=== PATIENT | male | born 1930 | race African-American/Black ===

== ENCOUNTER 2019-06-28 14:31 | Observation (INO) | payer OTHER ==
--- NOTE | 2019-06-28 15:48 | PDOC ---
History of Present Illness - General Chief Complaint: Injury Stated Complaint: FALL Time Seen by Provider: 06/28/19 15:06 History Source: Patient, Family Exam Limitations: Dementia - History of Present Illness Initial Comments: 06/30/19 18:06 HPI: 88M PMH vascular dementia, prior CVA (lacunar), and TIA BIBEMS from [address] [place] [address] after fall with head strike. Unwitnessed, found on bedroom floor w/ left ear laceration/bleeding and c/o head pain. Patient is poor/unreliable historian. Denies changes in vision/hearing, numbness/tingling/weakness, chest pain, sob, n /v/abdpain, dysuria. Not on AC per [facility] charts and family. Past History - Past Medical History Allergies/Adverse Reactions: Allergies Allergy/AdvReac Type Severity Reaction Status Date / Time No Known Allergies Allergy Verified 06/28/19 15:36 Home Medications: Ambulatory Orders Acetaminophen 650 mg PO DAILY 06/28/19 Aspirin [Aspirin EC] 81 mg PO DAILY 06/28/19 Atorvastatin Ca [Lipitor] 10 mg PO HS 06/28/19 Docusate Sodium 100 mg PO BID 06/28/19 Folic Acid 1 mg PO DAILY 06/28/19 Lisinopril 10 mg PO DAILY 06/28/19 Paliperidone [Paliperidone ER] 1.5 mg PO HS 06/28/19 COPD: No Dementia: Yes HTN: Yes Hypercholesterolemia: Yes - Psycho Social/Smoking Cessation Hx Smoking History: Smoker current status UNK Have you smoked in the past 12 months: No Information on smoking cessation initiated: No Hx Alcohol Use: No Drug/Substance Use Hx: No Review of Systems - Review of Systems Comments:: 06/30/19 18:07 ROS: ROS of limited utility 2/2 dementia, poor/unreliable historian. CONSTITUTIONAL: Denies F / C HEENT: Endorses head strike, head pain, left pinna laceration. Denies changes in vision / hearing. RESP: Denies SOB CARD: Denies chest pain GI: Denies N / V / D, abdominal pain, inability to tolerate PO : Family endorses that pt has increased urinary frequency in past couple weeks. Denies dysuria NEURO: +fall. Denies numbness, tingling, weakness *Physical Exam - Vital Signs Last Vital Signs Temp Pulse Resp BP Pulse Ox 97.9 F 66 20 130/71 100 06/28/19 14:43 06/28/19 14:43 06/28/19 14:43 06/28/19 14:43 06/28/19 14:43 - Physical Exam Comments: 06/30/19 18:07 PE: GEN: NAD, comfortable. Awake, alert, oriented to person and . confused to place and year. HEENT: No obvious deformities or hematomas of the skull. There is a laceration of the left ear pinna w/ slow oozing and mostly dried blood. No webster sign or raccoon eyes. CN II-XII grossly intact, EOMI, PERRLA. No facial asymmetry. Normal voice. There is mild TTP of C6 midline. CV: S1/S2, RRR, no m/r/g LUNG: CTAB, no wheezes, crackles, rales, rhonchi. GI: +mild TTP of the suprapubic region. soft, ndnt, +BS, no guarding, no rebound. No masses. EXTREMITIES: No LE edema. No obvious deformities of all extremities. SKIN: warm, dry, normal turgor PSYCH: pleasant, cooperative, slightly tangential responses on exam BACK: No step offs or midline tenderness. NEURO: age appropriate strength of UE and LE b/l. sensation grossly intact and equal throughout. Able to stand steady but complains of dizziness after. ED Treatment Course - LABORATORY CBC & Chemistry Diagram: 06/30/19 06:00 06/30/19 06:00 Medical Decision Making - Medical Decision Making 06/28/19 15:53 MDM: 88M B[place]EMS [place] s/p unwitnessed fall w/ + head strike and unknown LOC status. left pinna laceration. Work up for syncope - ACS, arrhythmia, dehydration, electrolyte abnormalities, infection - CBC, CMP, Coag, Cardiac - UA/UC - CT HEAD&NECK - CXR - EKG - Fluids (not on lasix, no hx CHF) - telemetry 06/28/19 17:01 EKG 07.02.19 16:41:17 HR 62 PA 184 QRS 82 QTc 438 Normal axis NSR CXR IMPRESSION: No acute chest pathology. If symptoms persist, further imaging may be of help 06/28/19 17:12 labs reviewed trop neg WBC 12 Elevated BUN/Cr 29.2/1.4 06/28/19 17:47 CT HEAD IMPRESSION: No CT evidence of acute intracranial pathology. Small chronic right cerebellar infarcts. Moderate periventricular and subcortical chronic microvascular ischemic changes. CT C-SPINE IMPRESSION: No fracture is identified. Patient and family updated on results Admit to OBS-TELE 06/28/19 18:14 Endorsed to hospitalist team OBS-TELE // Discharge - Discharge Information Problems reviewed: Yes Clinical Impression/Diagnosis: Syncope Qualifiers: Syncope type: unspecified Qualified Code(s): R55 - Syncope and collapse Fall Qualifiers: Encounter type: initial encounter Qualified Code(s): W19.XXXA - Unspecified fall, initial encounter Condition: Stable - Admission Yes - Follow up/Referral - Patient Discharge Instructions - Post Discharge Activity
[2019-06-28] MEDS ORDERED: DIPHTH,PERTUSS(ACELL),TET 0.5 ML DISP.SYRIN IM ONE ×2 (16:24→19:08)
[2019-06-28] MEDS ORDERED: SODIUM CHLORIDE 0.9% 500 ML INFUS.BAG IV ONE (16:26)
[2019-06-28 16:27] LABS: BASO % 0.9 % (0-2.0); EOS % 2.3 % (0-4.5); HEMATOCRIT 34.3 % (35.4-49); HEMOGLOBIN 11.2 GM/dL (11.7-16.9); LYMPH % 19.1 % (8-40); MCH 32.5 pg (25.7-33.7); MCHC 32.6 g/dl (32.0-35.9); MEAN CELL VOLUME 99.8 fl (80-96); MEAN PLT VOLUME 7.2 fl (7.5-11.1); MONO % 12.5 % (3.8-10.2); NEUT % 65.2 % (42.8-82.8); PLATELET COUNT 303 K/MM3 (134-434); RBC 3.44 M/mm3 (4.00-5.60); RDW 13.2 % (11.9-15.9); WHITE BLOOD COUNT 12.1 K/mm3 (4.0-10.0)
[2019-06-28 16:58] LABS: ALBUMIN 3.2 g/dl (3.4-5.0); BILIRUBIN,TOTAL 0.3 mg/dL (0.2-1); BLOOD UREA NITROGEN 29.2 mg/dL (7-18); CALCIUM 8.9 mg/dL (8.5-10.1); CREATININE 1.4 mg/dL (0.55-1.3); POTASSIUM 4.9 mmol/L (3.5-5.1); TOT PROT 7.2 g/dl (6.4-8.2)
[2019-06-28 17:02] LABS: INR 1.25 (0.83-1.09); PROTHROMBIN TIME (PATIENT) 14.8 SEC (9.7-13.0)
--- NOTE | 2019-06-28 17:02 | PDOC ---
Documentation entered by Anthony Zavala SCRIBE, acting as scribe for Augie Curry MD. Augie Curry MD: This documentation has been prepared by the Sally ruano Xhesika, SCRIBE, under my direction and personally reviewed by me in its entirety. I confirm that the documentation accurately reflects all work, treatment, procedures, and medical decision making performed by me. Attending Attestation - Resident Resident Name: NemesioKane - ED Attending Attestation I have performed the following: I have examined & evaluated the patient, The case was reviewed & discussed with the resident, I agree w/resident's findings & plan, Exceptions are as noted - HPI HPI: 06/28/19 16:23 The patient is a 88 year old male with a PMH of HTN, vascular dementia, prior CVA (lacunar), and TIA who presents to the ED [facility]IBEMS [facility] s/p fall. Pt does not remember the events, however, daughter at bedside providing history. As per daughter she recieved a call that the patient fell and hit his L ear. Daughter does not know if fall was witnessed/unwitnessed. Daughter denies any LOC. Pt does not recall his last tetanus shot. Pt denies any pain currently. Allergies:, NKDA Social Hx: Denies current smoking, drinking, or other substance usage. - Physicial Exam PE: 06/28/19 16:23 Vitals: Triage Vital signs reviewed General Appearance: no acute distress, well nourished well developed, Head: Atraumatic, normocephalic Ears: + L outer ear laceration. TM's normal bilaterally; Chest Wall: Nontender Cardiac: Regular rate and rhythm, no murmurs, no rubs, no gallops, Lungs: Clear to auscultation bilateral, good air movement bilaterally, Abdomen: Soft, nondistended, normal bowel sounds, nontender to palpation Extremities: Full range of motion to all extremities, no cyanosis, clubbing, or edema Skin: Warm and dry, no rashes or lesions, no petechiae Neuro: AOX3; Cranial Nerves 2-12 grossly c intact, Strength intact to all extremities, Sensation intact to all extremities Psych: normal mood, normal affect - Medical Decision Making 06/28/19 17:01 88 years old with past medical history of hypertension vascular dementia CVA TIA brought in by EMS for unwitnessed fall and possible syncopal event Patient does not remember events secondary to dementia and previous strokes Patient at risk for cardiogenic etiology of syncope arrhythmia valvular disease that warrants further testing or observation will observe for further management. Heart Score/ECG Review - ECG Impressions Comment:: 06/28/19 17:00 EKG performed at 1641 demonstrates normal sinus rhythm no ST elevations or T wave inversions Interpreted by me.
[2019-06-28 20:16] LABS: EPI CELLS 0.2 /HPF (0-5/HPF); HYALINE CASTS 9 /lpf (0-8); URINE APPEARANCE CLOUDY; URINE BACTERIA 4513.7 /hpf (NEGATIVE); URINE BILIRUBIN NEGATIVE (NEGATIVE); URINE COLOR YELLOW; URINE GLUCOSE (UA) NEGATIVE (NEGATIVE); URINE KETONE NEGATIVE (NEGATIVE); URINE LEUK ESTERASE 2+ (NEGATIVE); URINE NITRITE NEGATIVE (NEGATIVE); URINE PROTEIN TRACE (NEGATIVE); URINE RBC 2 /hpf (0-4); URINE WBC 90 /hpf (0-5)
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
[2019-06-28] MEDS ORDERED: ACETAMINOPHEN 325 MG TABLET (FP) PO PRN (21:02)
[2019-06-28] MEDS: DOCUSATE SODIUM 100 MG CAPSULE (FP) PO SCH (21:54)
[2019-06-28] MEDS: ATORVASTATIN CA 10 MG TABLET (FP) PO SCH (21:54)
[2019-06-28] MEDS: BACITRACIN/POLYMYXIN B SULFATE 15 GM TUBE TP SCH (23:46)
[2019-06-29] MEDS ORDERED: CEFTRIAXONE 1 GM in DEXTROSE 5%-WATER - 50 ML IVPB ONE (06:11)
[2019-06-29 06:40] LABS: BASO % 1.1 % (0-2.0); EOS % 2.2 % (0-4.5); HEMATOCRIT 32.5 % (35.4-49); HEMOGLOBIN 10.9 GM/dL (11.7-16.9); LYMPH % 25.7 % (8-40); MCH 33.4 pg (25.7-33.7); MCHC 33.6 g/dl (32.0-35.9); MEAN CELL VOLUME 99.4 fl (80-96); MEAN PLT VOLUME 7.8 fl (7.5-11.1); MONO % 10.1 % (3.8-10.2); NEUT % 60.9 % (42.8-82.8); PLATELET COUNT 304 K/MM3 (134-434); RBC 3.27 M/mm3 (4.00-5.60); RDW 13.3 % (11.9-15.9); WHITE BLOOD COUNT 10.2 K/mm3 (4.0-10.0)
[2019-06-29] MEDS: LISINOPRIL 10 MG TABLET (FP) PO SCH (06:47)
[2019-06-29] MEDS ORDERED: cefTRIAXone SODIUM 1 GM VIAL ONE (07:01)
[2019-06-29] MEDS ORDERED: DEXTROSE 5%-WATER - 50 ML IVPB ONE (07:02)
[2019-06-29 07:11] LABS: ANION GAP 7 MMOL/L (8-16); BLOOD UREA NITROGEN 23.8 mg/dL (7-18); CALCIUM 8.7 mg/dL (8.5-10.1); CHLORIDE 111 mmol/L (98-107); CO2 22 mmol/L (21-32); CREATININE 1.2 mg/dL (0.55-1.3); GLUCOSE,RANDOM 108 mg/dL (74-106); MAGNESIUM 1.9 mg/dL (1.8-2.4); PHOSPHOROUS 3.4 mg/dL (2.5-4.9); POTASSIUM 4.8 mmol/L (3.5-5.1); SODIUM 140 mmol/L (136-145)
--- NOTE | 2019-06-29 07:37 | PN ---
Progress Note, Physician Chief Complaint: No complaints offered, resting comfortably in bed History of Present Illness: This is a 88 y/o man from [facility] with a PMHx of Vascular Dementia, TIA, CVA, HTN, HLD. Who presents to the ED for evaluation after being found on the floor. Patient has Dementia and is unable to provide HPI. The patient's daughter was at bedside, and reports that she received a call that her dad was found on the floor and had cut his ear. The patient denies headache , dizziness, SOB, CP, palpitations, AP, N/V/D - Current Medication List Current Medications: Active Medications Acetaminophen (Tylenol -) 650 mg PO Q6H PRN PRN Reason: PAIN LEVEL 6-10 Aspirin (Ecotrin -) 81 mg PO DAILY [facility] Atorvastatin Calcium (Lipitor -) 10 mg PO HS [facility] Last Admin: 06/28/19 21:54 Dose: 10 mg Bacitracin/Polymyxin B Sulfate (Polysporin Ointment -) 1 applic TP DAILY [facility] Last Admin: 06/28/19 23:46 Dose: Not Given Docusate Sodium (Colace -) 100 mg PO BID [facility] Last Admin: 06/28/19 21:54 Dose: 100 mg Folic Acid (Folic Acid -) 1 mg PO DAILY [facility] Ceftriaxone Sodium 1 gm/ (Dextrose) 50 mls @ 100 mls/hr IVPB DAILY [facility]; Protocol Lisinopril (Prinivil) 10 mg PO DAILY [facility] Last Admin: 06/29/19 06:47 Dose: 10 mg - Objective Vital Signs: Vital Signs Temperature 98.0 F 06/29/19 06:00 Pulse Rate 74 06/29/19 06:00 Respiratory Rate 20 06/29/19 06:00 Blood Pressure 174/94 H 06/29/19 06:00 O2 Sat by Pulse Oximetry (%) 100 06/29/19 04:54 Constitutional: Yes: Well Nourished, No Distress, Calm Eyes: Yes: WNL, Conjunctiva Clear HENT: Yes: WNL, Atraumatic, Normocephalic Neck: Yes: WNL, Supple, Trachea Midline Cardiovascular: Yes: WNL, Regular Rate and Rhythm Respiratory: Yes: WNL, Regular, CTA Bilaterally Gastrointestinal: Yes: WNL, Normal Bowel Sounds ...Rectal Exam: Yes: Deferred Genitourinary: Yes: Incontinence Breast(s): Yes: WNL Musculoskeletal: Yes: WNL Edema: No Peripheral Pulses WNL: Yes Peripheral Pulses: Left Radial: 2+, Right Radial: 2+, Left Doralis Pedis: 2+, Right Dorsalis Pedis: 2+, Left Femoral: 2+, Right Femoral: 2+ Integumentary: Yes: Skin Tear (left ear) Neurological: Yes: Confusion ...Motor Strength: WNL Psychiatric: Yes: WNL Labs: CBC, BMP 06/29/19 05:28 06/29/19 05:28 INR, PTT INR 1.25 (0.83-1.09) H 06/28/19 16:08 - ....Imaging Cat Scan: Report Reviewed (HCT:no ICH, acute pathology Cervical: no fx) Problem List - Problems (1) Vascular dementia Assessment/Plan: c/w asa, statin supportive care fall precautions bed alarm Code(s): F01.50 - VASCULAR DEMENTIA WITHOUT BEHAVIORAL DISTURBANCE (2) TIA (transient ischemic attack) Assessment/Plan: history of Code(s): G45.9 - TRANSIENT CEREBRAL ISCHEMIC ATTACK, UNSPECIFIED (3) CVA (cerebral vascular accident) Assessment/Plan: history of Code(s): I63.9 - CEREBRAL INFARCTION, UNSPECIFIED (4) Prophylactic measure Assessment/Plan: FEN Fluids: adequate PO intake Electrolytes: replete as indicated Nutrition: low sodium diet DVT prophylaxis: SCDs, oob, ambulation Dispo: continues to require inpatient care. Full code discharge planning Code(s): Z29.9 - ENCOUNTER FOR PROPHYLACTIC MEASURES, UNSPECIFIED (5) HLD (hyperlipidemia) Assessment/Plan: c/w atrorvastatin Code(s): E78.5 - HYPERLIPIDEMIA, UNSPECIFIED (6) HTN (hypertension) Assessment/Plan: c/w lisinipril with hold parameters Code(s): I10 - ESSENTIAL (PRIMARY) HYPERTENSION (7) Syncope and collapse Assessment/Plan: unwittnessed fall mainatin on telelmtry cardiac /u in progress Troponins negative EKG without ischemic changes TTE pending appreciate cardiology consultation Code(s): R55 - SYNCOPE AND COLLAPSE Visit type - Emergency Visit Emergency Visit: Yes ED Registration Date: 06/28/19 Care time: The patient presented to the Emergency Department on the above date and was hospitalized for further evaluation of their emergent condition. - New Patient This patient is new to me today: Yes Date on this admission: 06/29/19 - Critical Care Critical Care patient: No - Discharge Referral Referred to [facility] No
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
[2019-06-29] MEDS: ASPIRIN COATED 81 MG TABLET.EC PO SCH (09:29)
[2019-06-29] MEDS: DOCUSATE SODIUM 100 MG CAPSULE (FP) PO SCH ×2 (09:29→22:41)
[2019-06-29] MEDS: FOLIC ACID 1 MG TABLET (FP) PO SCH (09:29)
[2019-06-29] MEDS: BACITRACIN/POLYMYXIN B SULFATE 15 GM TUBE TP SCH (12:59)
--- NOTE | 2019-06-29 14:55 | EKG ---
Test Reason : Blood Pressure : / mmHG Vent. Rate : 062 BPM Atrial Rate : 062 BPM P-R Int : 184 ms QRS Dur : 082 ms QT Int : 432 ms P-R-T Axes : 062 020 052 degrees QTc Int : 438 ms POOR DATA QUALITY, INTERPRETATION MAY BE ADVERSELY AFFECTED NORMAL SINUS RHYTHM NORMAL ECG NO PREVIOUS ECGS AVAILABLE Confirmed by LUIS ARMANDO BRIONES MD ([id number]) on 06/29/2019 2:55:33 PM Referred By: Confirmed By:LUIS ARMANDO BRIONES MD
[2019-06-29 15:17] VITALS: BMI 26.4
[2019-06-29] MEDS: ATORVASTATIN CA 10 MG TABLET (FP) PO SCH (22:41)
[2019-06-30 06:33] LABS: EOS % 3.1 % (0-4.5); HEMATOCRIT 33.8 % (35.4-49); HEMOGLOBIN 11.4 GM/dL (11.7-16.9); LYMPH % 25.9 % (8-40); MCH 33.5 pg (25.7-33.7); MCHC 33.7 g/dl (32.0-35.9); MEAN CELL VOLUME 99.2 fl (80-96); MEAN PLT VOLUME 7.4 fl (7.5-11.1); MONO % 11.2 % (3.8-10.2); NEUT % 58.8 % (42.8-82.8); PLATELET COUNT 274 K/MM3 (134-434); WHITE BLOOD COUNT 9.5 K/mm3 (4.0-10.0)
[2019-06-30 07:06] LABS: BILIRUBIN,TOTAL 0.3 mg/dL (0.2-1); BLOOD UREA NITROGEN 22.7 mg/dL (7-18); CALCIUM 8.8 mg/dL (8.5-10.1); CREATININE 1.2 mg/dL (0.55-1.3); POTASSIUM 4.6 mmol/L (3.5-5.1)
[2019-06-30] MEDS: LISINOPRIL 10 MG TABLET (FP) PO SCH ×2 (07:34→10:03)
--- NOTE | 2019-06-30 08:05 | PN ---
Progress Note, Physician Chief Complaint: No complaints offered, resting comfortably in bed. awaiting daughter to visit History of Present Illness: This is a 88 y/o man from [facility] with a PMHx of Vascular Dementia, TIA, CVA, HTN, HLD. Who presents to the ED for evaluation after being found on the floor. Patient has Dementia and is unable to provide HPI. The patient's daughter was at bedside, and reports that she received a call that her dad was found on the floor and had cut his ear. The patient denies headache , dizziness, SOB, CP, palpitations, AP, N/V/D - Current Medication List Current Medications: Active Medications Acetaminophen (Tylenol -) 650 mg PO Q6H PRN PRN Reason: PAIN LEVEL 6-10 Aspirin (Ecotrin -) 81 mg PO DAILY [facility] Last Admin: 06/29/19 09:29 Dose: 81 mg Atorvastatin Calcium (Lipitor -) 10 mg PO HS [facility] Last Admin: 06/29/19 22:41 Dose: 10 mg Bacitracin/Polymyxin B Sulfate (Polysporin Ointment -) 1 applic TP DAILY [facility] Last Admin: 06/29/19 12:59 Dose: Not Given Docusate Sodium (Colace -) 100 mg PO BID [facility] Last Admin: 06/29/19 22:41 Dose: 100 mg Folic Acid (Folic Acid -) 1 mg PO DAILY [facility] Last Admin: 06/29/19 09:29 Dose: 1 mg Ceftriaxone Sodium 1 gm/ (Dextrose) 50 mls @ 100 mls/hr IVPB DAILY [facility]; Protocol Lisinopril (Prinivil) 10 mg PO DAILY [facility] Last Admin: 06/30/19 07:34 Dose: 10 mg - Objective Vital Signs: Vital Signs Temperature 97.6 F 06/30/19 06:00 Pulse Rate 68 06/30/19 06:00 Respiratory Rate 18 06/30/19 06:00 Blood Pressure 178/87 H 06/30/19 06:00 O2 Sat by Pulse Oximetry (%) 99 06/30/19 04:00 Additional Findings/Remarks: Constitutional: Yes: Well Nourished, No Distress, Calm Eyes: Yes: WNL, Conjunctiva Clear HENT: Yes: WNL, Atraumatic, Normocephalic Neck: Yes: WNL, Supple, Trachea Midline Cardiovascular: Yes: WNL, Regular Rate and Rhythm Respiratory: Yes: WNL, Regular, CTA Bilaterally Gastrointestinal: Yes: WNL, Normal Bowel Sounds ...Rectal Exam: Yes: Deferred Genitourinary: Yes: Incontinence Breast(s): Yes: WNL Musculoskeletal: Yes: WNL Edema: No Peripheral Pulses WNL: Yes Peripheral Pulses: Left Radial: 2+, Right Radial: 2+, Left Doralis Pedis: 2+, Right Dorsalis Pedis: 2+, Left Femoral: 2+, Right Femoral: 2+ Integumentary: Yes: Skin Tear (left ear) Neurological: Yes: Confusion ...Motor Strength: WNL Psychiatric: Yes: WNL Labs: CBC, BMP 06/30/19 06:00 06/30/19 06:00 INR, PTT INR 1.25 (0.83-1.09) H 06/28/19 16:08 Problem List - Problems (1) Vascular dementia Assessment/Plan: c/w asa, statin supportive care fall precautions bed alarm Code(s): F01.50 - VASCULAR DEMENTIA WITHOUT BEHAVIORAL DISTURBANCE (2) TIA (transient ischemic attack) Assessment/Plan: history in the past HCT without acute pathology Code(s): G45.9 - TRANSIENT CEREBRAL ISCHEMIC ATTACK, UNSPECIFIED (3) CVA (cerebral vascular accident) Assessment/Plan: history in the past HCT without acute pathology Code(s): I63.9 - CEREBRAL INFARCTION, UNSPECIFIED (4) Prophylactic measure Assessment/Plan: FEN Fluids: adequate PO intake Electrolytes: replete as indicated Nutrition: low sodium diet DVT prophylaxis: SCDs, oob, ambulation Dispo: continues to require inpatient care. Full code discharge planning Code(s): Z29.9 - ENCOUNTER FOR PROPHYLACTIC MEASURES, UNSPECIFIED (5) HLD (hyperlipidemia) Assessment/Plan: c/w atrorvastatin Code(s): E78.5 - HYPERLIPIDEMIA, UNSPECIFIED (6) HTN (hypertension) Assessment/Plan: c/w lisinipril with hold parameters Code(s): I10 - ESSENTIAL (PRIMARY) HYPERTENSION (7) Syncope and collapse Assessment/Plan: unwittnessed fall maintain on telemetry cardiac w/u in progress Troponins negative EKG without ischemic changes TTE pending appreciate cardiology consultation Code(s): R55 - SYNCOPE AND COLLAPSE (8) UTI (urinary tract infection) Assessment/Plan: UA- +2 Leukocytes, 90 WBCs, + Bacteria, asymptomatic Urine Culture with LFNB c/w Ceftriaxone, follow sensitivities Code(s): N39.0 - URINARY TRACT INFECTION, SITE NOT SPECIFIED (9) KB (acute kidney injury) Assessment/Plan: Cr 1.4 on admission now 1.2 avoid nephroloxic agents continue to monitor Code(s): N17.9 - ACUTE KIDNEY FAILURE, UNSPECIFIED Visit type - Emergency Visit Emergency Visit: Yes ED Registration Date: 06/28/19 Care time: The patient presented to the Emergency Department on the above date and was hospitalized for further evaluation of their emergent condition. - New Patient This patient is new to me today: No - Critical Care Critical Care patient: No - Discharge Referral Referred to [facility] No
[2019-06-30] MEDS ORDERED: DEXTROSE 5%-WATER - 50 ML IVPB ONE (09:06)
[2019-06-30] MEDS ORDERED: cefTRIAXone SODIUM 1 GM VIAL ONE (09:06)
[2019-06-30] MEDS: DOCUSATE SODIUM 100 MG CAPSULE (FP) PO SCH ×2 (09:33→22:35)
[2019-06-30] MEDS: FOLIC ACID 1 MG TABLET (FP) PO SCH (09:33)
[2019-06-30] MEDS: CEFTRIAXONE 1 GM in DEXTROSE 5%-WATER - 50 ML IVPB SCH (09:33)
[2019-06-30] MEDS: BACITRACIN/POLYMYXIN B SULFATE 15 GM TUBE TP SCH (09:34)
[2019-06-30] MEDS: ASPIRIN COATED 81 MG TABLET.EC PO SCH (09:37)
--- NOTE | 2019-06-30 11:24 | PN ---
Progress Note, Physician History of Present Illness: This is a 88 y/o man from [facility] with a PMHx of Vascular Dementia, TIA, CVA, HTN, HLD. Who presents to the ED for evaluation after being found on the floor. Patient has Dementia and is unable to provide HPI. The patient's daughter was at bedside, and reports that she received a call that her dad was found on the floor and had cut his ear. The patient denies headache , dizziness, SOB, CP, palpitations, AP, N/V/D. - Current Medication List Current Medications: Active Medications Acetaminophen (Tylenol -) 650 mg PO Q6H PRN PRN Reason: PAIN LEVEL 6-10 Aspirin (Ecotrin -) 81 mg PO DAILY [facility] Last Admin: 06/30/19 09:37 Dose: 81 mg Atorvastatin Calcium (Lipitor -) 10 mg PO HS [facility] Last Admin: 06/29/19 22:41 Dose: 10 mg Bacitracin/Polymyxin B Sulfate (Polysporin Ointment -) 1 applic TP DAILY [facility] Last Admin: 06/30/19 09:34 Dose: 1 applic Docusate Sodium (Colace -) 100 mg PO BID [facility] Last Admin: 06/30/19 09:33 Dose: 100 mg Folic Acid (Folic Acid -) 1 mg PO DAILY [facility] Last Admin: 06/30/19 09:33 Dose: 1 mg Ceftriaxone Sodium 1 gm/ (Dextrose) 50 mls @ 100 mls/hr IVPB DAILY [facility]; Protocol Last Admin: 06/30/19 09:33 Dose: 100 mls/hr Lisinopril (Prinivil) 10 mg PO DAILY [facility] Last Admin: 06/30/19 10:03 Dose: Not Given - Objective Vital Signs: Vital Signs Temperature 97.6 F 06/30/19 08:50 Pulse Rate 68 06/30/19 09:31 Respiratory Rate 18 06/30/19 09:31 Blood Pressure 123/57 L 06/30/19 09:31 O2 Sat by Pulse Oximetry (%) 99 06/30/19 04:00 Eyes: Yes: WNL, Conjunctiva Clear, EOM Intact HENT: Yes: WNL, Atraumatic, Normocephalic Neck: Yes: WNL, Supple, Trachea Midline Cardiovascular: Yes: WNL, Regular Rate and Rhythm Respiratory: Yes: WNL, Regular, CTA Bilaterally Gastrointestinal: Yes: WNL, Normal Bowel Sounds Genitourinary: Yes: WNL Musculoskeletal: Yes: WNL Extremities: Yes: WNL Edema: No Integumentary: Yes: WNL Neurological: Yes: WNL, Alert, Oriented ...Motor Strength: WNL Psychiatric: Yes: WNL Labs: CBC, BMP 06/30/19 06:00 06/30/19 06:00 INR, PTT INR 1.25 (0.83-1.09) H 06/28/19 16:08 Problem List - Problems (1) Abrasion Code(s): T14.8XXA - OTHER INJURY OF UNSPECIFIED BODY REGION, INITIAL ENCOUNTER (2) CVA (cerebral vascular accident) Code(s): I63.9 - CEREBRAL INFARCTION, UNSPECIFIED (3) Dementia Code(s): F03.90 - UNSPECIFIED DEMENTIA WITHOUT BEHAVIORAL DISTURBANCE (4) Fall Code(s): W19.XXXA - UNSPECIFIED FALL, INITIAL ENCOUNTER Qualifiers: Encounter type: initial encounter Qualified Code(s): W19.XXXA - Unspecified fall, initial encounter (5) HLD (hyperlipidemia) Code(s): E78.5 - HYPERLIPIDEMIA, UNSPECIFIED (6) HTN (hypertension) Code(s): I10 - ESSENTIAL (PRIMARY) HYPERTENSION (7) Prophylactic measure Code(s): Z29.9 - ENCOUNTER FOR PROPHYLACTIC MEASURES, UNSPECIFIED (8) Syncope Code(s): R55 - SYNCOPE AND COLLAPSE Qualifiers: Syncope type: unspecified Qualified Code(s): R55 - Syncope and collapse (9) TIA (transient ischemic attack) Code(s): G45.9 - TRANSIENT CEREBRAL ISCHEMIC ATTACK, UNSPECIFIED (10) UTI (urinary tract infection) Code(s): N39.0 - URINARY TRACT INFECTION, SITE NOT SPECIFIED (11) Vascular dementia Code(s): F01.50 - VASCULAR DEMENTIA WITHOUT BEHAVIORAL DISTURBANCE Assessment/Plan Vascular Dementia, TIA, CVA, HTN, HLD. Who presents to the ED for evaluation after being found on the floor r/o mi neg Plan telemetry echo cont medical rx will f/u Coverage for dr. Haro
[2019-06-30] MEDS: ATORVASTATIN CA 10 MG TABLET (FP) PO SCH (22:35)
[2019-07-01 06:59] LABS: BASO % 0.9 % (0-2.0); EOS % 3.8 % (0-4.5); HEMATOCRIT 32.7 % (35.4-49); HEMOGLOBIN 10.9 GM/dL (11.7-16.9); MCH 33.2 pg (25.7-33.7); MCHC 33.5 g/dl (32.0-35.9); MEAN CELL VOLUME 99.2 fl (80-96); MEAN PLT VOLUME 8.1 fl (7.5-11.1); MONO % 12.1 % (3.8-10.2); NEUT % 59.2 % (42.8-82.8); PLATELET COUNT 261 K/MM3 (134-434); RDW 13.2 % (11.9-15.9); WHITE BLOOD COUNT 10.7 K/mm3 (4.0-10.0)
--- NOTE | 2019-07-01 07:29 | PN ---
Progress Note, Physician History of Present Illness: This is a 88 y/o man from [facility] with a PMHx of Vascular Dementia, TIA, CVA, HTN, HLD. Who presents to the ED for evaluation after being found on the floor. Patient has Dementia and is unable to provide HPI. The patient's daughter was at bedside, and reports that she received a call that her dad was found on the floor and had cut his ear. The patient denies headache , dizziness, SOB, CP, palpitations, AP, N/V/D - Current Medication List Current Medications: Active Medications Acetaminophen (Tylenol -) 650 mg PO Q6H PRN PRN Reason: PAIN LEVEL 6-10 Aspirin (Ecotrin -) 81 mg PO DAILY [facility] Last Admin: 06/30/19 09:37 Dose: 81 mg Atorvastatin Calcium (Lipitor -) 10 mg PO HS [facility] Last Admin: 06/30/19 22:35 Dose: 10 mg Bacitracin/Polymyxin B Sulfate (Polysporin Ointment -) 1 applic TP DAILY [facility] Last Admin: 06/30/19 09:34 Dose: 1 applic Docusate Sodium (Colace -) 100 mg PO BID [facility] Last Admin: 06/30/19 22:35 Dose: 100 mg Folic Acid (Folic Acid -) 1 mg PO DAILY [facility] Last Admin: 06/30/19 09:33 Dose: 1 mg Ceftriaxone Sodium 1 gm/ (Dextrose) 50 mls @ 100 mls/hr IVPB DAILY [facility]; Protocol Last Admin: 06/30/19 09:33 Dose: 100 mls/hr Lisinopril (Prinivil) 10 mg PO DAILY [facility] Last Admin: 06/30/19 10:03 Dose: Not Given - Objective Vital Signs: Vital Signs Temperature 98.2 F 07/01/19 06:00 Pulse Rate 64 07/01/19 06:00 Respiratory Rate 18 07/01/19 06:00 Blood Pressure 157/78 07/01/19 06:00 O2 Sat by Pulse Oximetry (%) 99 07/01/19 04:00 Labs: INR, PTT INR 1.25 (0.83-1.09) H 06/28/19 16:08 Problem List - Problems (1) Vascular dementia Code(s): F01.50 - VASCULAR DEMENTIA WITHOUT BEHAVIORAL DISTURBANCE (2) TIA (transient ischemic attack) Code(s): G45.9 - TRANSIENT CEREBRAL ISCHEMIC ATTACK, UNSPECIFIED (3) CVA (cerebral vascular accident) Code(s): I63.9 - CEREBRAL INFARCTION, UNSPECIFIED (4) Prophylactic measure Code(s): Z29.9 - ENCOUNTER FOR PROPHYLACTIC MEASURES, UNSPECIFIED (5) HLD (hyperlipidemia) Code(s): E78.5 - HYPERLIPIDEMIA, UNSPECIFIED (6) HTN (hypertension) Code(s): I10 - ESSENTIAL (PRIMARY) HYPERTENSION (7) Syncope and collapse Code(s): R55 - SYNCOPE AND COLLAPSE (8) UTI (urinary tract infection) Code(s): N39.0 - URINARY TRACT INFECTION, SITE NOT SPECIFIED (9) KB (acute kidney injury) Code(s): N17.9 - ACUTE KIDNEY FAILURE, UNSPECIFIED
[2019-07-01 07:31] LABS: BILIRUBIN,TOTAL 0.3 mg/dL (0.2-1); BLOOD UREA NITROGEN 23.1 mg/dL (7-18); CALCIUM 8.5 mg/dL (8.5-10.1); CREATININE 1.2 mg/dL (0.55-1.3); MAGNESIUM 1.9 mg/dL (1.8-2.4); TOT PROT 6.7 g/dl (6.4-8.2)
[2019-07-01] MEDS ORDERED: PT OWN MED DRAWER 7, Y5N ONE (09:02)
[2019-07-01] MEDS ORDERED: cefTRIAXone SODIUM 1 GM VIAL ONE (09:02)
[2019-07-01] MEDS ORDERED: DEXTROSE 5%-WATER - 50 ML IVPB ONE (09:02)
[2019-07-01] MEDS: LISINOPRIL 10 MG TABLET (FP) PO SCH (10:47)
[2019-07-01] MEDS: DOCUSATE SODIUM 100 MG CAPSULE (FP) PO SCH (10:47)
[2019-07-01] MEDS: FOLIC ACID 1 MG TABLET (FP) PO SCH (10:47)
[2019-07-01] MEDS: CEFTRIAXONE 1 GM in DEXTROSE 5%-WATER - 50 ML IVPB SCH (10:48)
[2019-07-01] MEDS: ASPIRIN COATED 81 MG TABLET.EC PO SCH (10:48)
[2019-07-01] MEDS: BACITRACIN/POLYMYXIN B SULFATE 15 GM TUBE TP SCH (10:48)
--- NOTE | 2019-07-01 11:46 | ECHO ---
Name: ANTONIO RYAN Exam:Adult Echocardiogram Study Date: 07/01/2019 09:48 AM Age: 88 yrs Reason For Study: SYNCOPE Height: 68 in Weight: 180 lb BSA: 2.0 m2 MMode/2D Measurements & Calculations IVSd: 0.96 cm Ao root diam: 3.0 cm LVIDd: 4.4 cm LA dimension: 2.3 cm LVIDs: 3.1 cm LVPWd: 1.1 cm LVPWs: 0.97 cm EDV(Teich): 86.8 ml ESV(Teich): 37.4 ml LVOT diam: 2.2 cm LAV (MOD-bp): 51.0 ml TAPSE: 2.5 cm RV S Efrain: 14.8 cm/sec Doppler Measurements & Calculations MV E max efrain: 48.4 cm/sec Ao V2 max: 142.9 cm/sec MV A max efrain: 84.4 cm/sec Ao max P.2 mmHg MV E/A: 0.57 AI P1/2t: 486.8 msec MV dec time: 0.08 sec RADHA(V,D): 2.3 cm2 AI max efrain: 464.0 cm/sec LV V1 max P.8 mmHg AI max P.1 mmHg LV V1 max: 82.9 cm/sec AI dec slope: 279.2 cm/sec2 TR max efrain: 245.2 cm/sec PA V2 max: 105.9 cm/sec TR max P.4 mmHg PA max P.5 mmHg PI end-d efrain: 70.6 cm/sec Med Peak E' Efrain: 4.0 cm/sec Med E/e': 12.1 Lat Peak E' Efrain: 9.0 cm/sec Lat E/e': 5.4 Procedure A complete two-dimensional transthoracic echocardiogram was performed (2D, M-mode, Doppler and color flow Doppler). Left Ventricle The left ventricle is normal in size. Left ventricular systolic function is normal. Ejection Fraction = 55- 60%. Grade I diastolic dysfunction, (abnormal relaxation pattern). Ratio E/E'= 12. No regional wall m otion abnormalities noted. Right Ventricle The right ventricle is normal size. The right ventricular systolic function is normal. RV systolic TD I is 15 cm/s. Atria The left atrial size is normal. LA volume index is 26 ml/m2. Right atrial size is normal. Mitral Valve The mitral valve is normal in structure and function. There is mild mitral regurgitation. Tricuspid Valve The tricuspid valve is normal in structure and function. There is mild tricuspid regurgitation. Pulmo nary artery systolic pressure is at least 34 mmHg if RA pressure is assumed 3 mmHg. Aortic Valve There is mild aortic sclerosis.;. Mild to moderate aortic regurgitation. Pulmonic Valve The pulmonic valve is not well visualized. Mild pulmonic valvular regurgitation. Great Vessels The aortic root is normal size. Pericardium/Pleura There is no pericardial effusion. Interpretation Summary The left ventricle is normal in size. Left ventricular systolic function is normal. No regional wall motion abnormalities noted. Ejection Fraction = 55-60%. Grade I diastolic dysfunction, (abnormal relaxation pattern). Ratio E/E'= 12 The right ventricular systolic function is normal. The left atrial size is normal. Right atrial size is normal. There is mild mitral regurgitation. There is mild tricuspid regurgitation. Pulmonary artery systolic pressure is at least 34 mmHg if RA pressure is assumed 3 mmHg There is mild aortic sclerosis. Mild to moderate aortic regurgitation. Mild pulmonic valvular regurgitation. There is no pericardial effusion. Previous study is not available for comparison Chris Haro MD 07/01/2019 11:46 AM
--- NOTE | 2019-07-01 12:39 | PN ---
Progress Note, Physician Chief Complaint: Not in distress History of Present Illness: Patient was seen and examined. Awake and alert. Chart was reviewed Denies chest pain, SOB or palpitations - Current Medication List Current Medications: Active Medications Acetaminophen (Tylenol -) 650 mg PO Q6H PRN PRN Reason: PAIN LEVEL 6-10 Aspirin (Ecotrin -) 81 mg PO DAILY [facility] Last Admin: 07/01/19 10:48 Dose: 81 mg Atorvastatin Calcium (Lipitor -) 10 mg PO HS [facility] Last Admin: 06/30/19 22:35 Dose: 10 mg Bacitracin/Polymyxin B Sulfate (Polysporin Ointment -) 1 applic TP DAILY [facility] Last Admin: 07/01/19 10:48 Dose: 1 applic Docusate Sodium (Colace -) 100 mg PO BID [facility] Last Admin: 07/01/19 10:47 Dose: 100 mg Folic Acid (Folic Acid -) 1 mg PO DAILY [facility] Last Admin: 07/01/19 10:47 Dose: 1 mg Ceftriaxone Sodium 1 gm/ (Dextrose) 50 mls @ 100 mls/hr IVPB DAILY [facility]; Protocol Last Admin: 07/01/19 10:48 Dose: 100 mls/hr Lisinopril (Prinivil) 10 mg PO DAILY [facility] Last Admin: 07/01/19 10:47 Dose: 10 mg - Objective Vital Signs: Vital Signs Temperature 98 F 07/01/19 08:50 Pulse Rate 70 07/01/19 08:50 Respiratory Rate 18 07/01/19 08:50 Blood Pressure 160/79 07/01/19 08:50 O2 Sat by Pulse Oximetry (%) 99 07/01/19 04:00 Eyes: Yes: PERRL HENT: Yes: Atraumatic Neck: Yes: Supple Cardiovascular: Yes: Regular Rate and Rhythm, S1, S2 Respiratory: Yes: CTA Bilaterally Gastrointestinal: Yes: Normal Bowel Sounds, Soft. No: Tenderness Edema: No Additional Findings/Remarks: - Review of Systems Constitutional: denies Fever. denies: Chills Cardiovascular: denies Shortness of Breath. denies: Chest Pain, Palpitations Respiratory: denies Cough, SOB. denies: Hemoptysis, Orthopnea, PND Gastrointestinal: denies: Abdominal Pain, Constipation, Diarrhea, Melena, Nausea , Rectal Bleeding, Vomiting Genitourinary: denies: Dysuria, Hematuria Musculoskeletal: denies: Back Pain, Joint Pain Neurological: denies: Dizziness, Headache, Seizure, (+) Syncope Labs: CBC, BMP 07/01/19 05:22 07/01/19 05:22 INR, PTT INR 1.25 (0.83-1.09) H 06/28/19 16:08 Problem List - Problems (1) CVA (cerebral vascular accident) Code(s): I63.9 - CEREBRAL INFARCTION, UNSPECIFIED (2) Dementia Code(s): F03.90 - UNSPECIFIED DEMENTIA WITHOUT BEHAVIORAL DISTURBANCE (3) HLD (hyperlipidemia) Code(s): E78.5 - HYPERLIPIDEMIA, UNSPECIFIED (4) HTN (hypertension) Code(s): I10 - ESSENTIAL (PRIMARY) HYPERTENSION (5) Syncope Code(s): R55 - SYNCOPE AND COLLAPSE Qualifiers: Syncope type: unspecified Qualified Code(s): R55 - Syncope and collapse (6) TIA (transient ischemic attack) Code(s): G45.9 - TRANSIENT CEREBRAL ISCHEMIC ATTACK, UNSPECIFIED Assessment/Plan 1. HTN 2. Hypercholesterolemia 3. Cerebrovascular disease 4. TIA 5. Dementia 6. ? Syncope PLAN: 1. Echocardiography to assess LV/RV and valvular function 2. Continue ASA 3. Continue Prinivil and uptitrate 4. Atorvastatin Further plans are to follow Chris Haro MD
--- NOTE | 2019-07-01 15:40 | DS ---
Physical Exam: SUBJECTIVE: Patient seen and examined OBJECTIVE: Vital Signs Period Temp Pulse Resp BP Sys/Liu Pulse Ox Last 24 Hr 97.7 F-98.4 F 60-70 16-18 118-171/53-83 99-99 PHYSICAL EXAM GENERAL: The patient is awake, alert, and fully oriented, in no acute distress. HEAD: Normal with no signs of trauma. EYES: PERRL, extraocular movements intact, sclera anicteric, conjunctiva clear. ENT: Ears normal, nares patent, oropharynx clear without exudates, moist mucous membranes. NECK: Trachea midline, full range of motion, supple. LUNGS: Breath sounds equal, clear to auscultation bilaterally, no wheezes, no crackles, no accessory muscle use. HEART: Regular rate and rhythm, S1, S2 without murmur, rub or gallop. ABDOMEN: Soft, nontender, nondistended, normoactive bowel sounds, no guarding, no rebound, no hepatosplenomegaly, no masses. EXTREMITIES: 2+ pulses, warm, well-perfused, no edema. NEUROLOGICAL: Cranial nerves II through XII grossly intact. Normal speech, gait not observed. PSYCH: Normal mood, normal affect. SKIN: Warm, dry, normal turgor, no rashes or lesions noted. LABS Laboratory Results - last 24 hr 07/01/19 07/01/19 05:22 05:22 WBC 10.7 H RBC 3.30 L Hgb 10.9 L Hct 32.7 L MCV 99.2 H MCH 33.2 MCHC 33.5 RDW 13.2 Plt Count 261 MPV 8.1 Absolute Neuts (auto) 6.3 Neutrophils % 59.2 Lymphocytes % 24.0 Monocytes % 12.1 H Eosinophils % 3.8 Basophils % 0.9 Nucleated RBC % 0 Sodium 144 Potassium 5.0 Chloride 110 H Carbon Dioxide 26 Anion Gap 8 BUN 23.1 H Creatinine 1.2 Est GFR (CKD-EPI)AfAm 61.76 Est GFR (CKD-EPI)NonAf 53.29 Random Glucose 110 H Calcium 8.5 Magnesium 1.9 Total Bilirubin 0.3 AST 13 L ALT 20 Alkaline Phosphatase 54 Total Protein 6.7 Albumin 3.0 L HOSPITAL COURSE: Date of Admission:06/28/19 Date of Discharge: 07/01/19 Minutes to complete discharge: 55 Discharge Summary Problems reviewed: Yes Reason For Visit: SYNCOPE/FALL Current Active Problems KB (acute kidney injury) (Acute) Abrasion (Acute) CVA (cerebral vascular accident) (Acute) Dementia (Acute) Fall (Acute) HLD (hyperlipidemia) (Acute) HTN (hypertension) (Acute) Prophylactic measure (Acute) Syncope (Acute) Syncope and collapse (Acute) TIA (transient ischemic attack) (Acute) UTI (urinary tract infection) (Acute) Vascular dementia (Acute) - Instructions Referrals: Augie Maxwell MD [Primary Care Provider] - Disposition: INTERMEDIATE FACILITY - Home Medications Comprehensive Discharge Medication List: Ambulatory Orders Acetaminophen 650 mg PO DAILY 06/28/19 Aspirin [Aspirin EC] 81 mg PO DAILY 06/28/19 Atorvastatin Ca [Lipitor] 10 mg PO HS 06/28/19 Docusate Sodium 100 mg PO BID 06/28/19 Folic Acid 1 mg PO DAILY 06/28/19 Lisinopril 10 mg PO DAILY 06/28/19 Paliperidone [Paliperidone ER] 1.5 mg PO HS 06/28/19 Bacitracin/Polymyxin Ointment [Polysporin Ointment -] 1 applic TP DAILY tube Sulfamethoxazole/Trimethoprim [Bactrim DS -] 1 each PO BID #14 tablet 07/01/19 Problem List - Problems (1) Vascular dementia Code(s): F01.50 - VASCULAR DEMENTIA WITHOUT BEHAVIORAL DISTURBANCE (2) TIA (transient ischemic attack) Code(s): G45.9 - TRANSIENT CEREBRAL ISCHEMIC ATTACK, UNSPECIFIED (3) CVA (cerebral vascular accident) Code(s): I63.9 - CEREBRAL INFARCTION, UNSPECIFIED (4) Prophylactic measure Code(s): Z29.9 - ENCOUNTER FOR PROPHYLACTIC MEASURES, UNSPECIFIED (5) HLD (hyperlipidemia) Code(s): E78.5 - HYPERLIPIDEMIA, UNSPECIFIED (6) HTN (hypertension) Code(s): I10 - ESSENTIAL (PRIMARY) HYPERTENSION (7) Syncope and collapse Code(s): R55 - SYNCOPE AND COLLAPSE (8) UTI (urinary tract infection) Code(s): N39.0 - URINARY TRACT INFECTION, SITE NOT SPECIFIED (9) KB (acute kidney injury) Code(s): N17.9 - ACUTE KIDNEY FAILURE, UNSPECIFIED - Discharge Referral Referred to [facility] No
[2019-07-01 18:59] VITALS: BP 149/75; PULSE 75; TEMP 98
[2019-07-02] MEDS ORDERED: SULFAMETHOXAZOLE/TRIMETHOPRIM 800MG/160MG D.S. TABLET PO SCH (10:00)
== END 2019-07-01 21:00 ==
LOC: JER 14:31 → JERBED 17:52 → J4S 20:39
PROVIDERS: ADMIT Internal Medicine; ATTEND Nurse Practitioner Acute Care
PROC: 3E03329 Introduction of Other Anti-infective into Peripheral Vein, Percutaneous Approach (ICD-10-PCS; principal; 2019-06-28)
PROC: 3E0337Z Introduction of Electrolytic and Water Balance Substance into Peripheral Vein, Percutaneous Approach (ICD-10-PCS; 2019-06-28)
DX: R55 Syncope and collapse (principal); N39.0 Urinary tract infection, site not specified; N17.9 Acute kidney failure, unspecified; S01.312A Laceration without foreign body of left ear, initial encounter; T14.8XXA Other injury of unspecified body region, initial encounter; I10 Essential (primary) hypertension; E78.5 Hyperlipidemia, unspecified; F01.50 Vascular dementia, unspecified severity, without behavioral disturbance, psychotic disturbance, mood disturbance, and anxiety; Z29.8 Encounter for other specified prophylactic measures; Z86.73 Personal history of transient ischemic attack (TIA), and cerebral infarction without residual deficits; Z79.82 Long term (current) use of aspirin; X58.XXXA Exposure to other specified factors, initial encounter; Y93.9 Activity, unspecified; Y92.122 Bedroom in nursing home as the place of occurrence of the external cause
CPT/HCPCS: 36415; 70450-TC; 71045-TC-FY; 72125-TC; 80048; 80053; 81003; 82550; 83735; 84100; 84484; 85025; 85610; 86850; 86900; 86901; 87040; 87086; 87186; 90715; 93005; 93010; 93306-TC; 96365; 96375; 97116-GP; 97161-GP; 99283-25; G0378